=== PATIENT | male | born 1980 | race Caucasian/White ===

== ENCOUNTER 2016-11-07 18:04 | Emergency (ER) | payer BC, OTHER ==
[2016-11-07 19:24] VITALS: BP 125/75
--- NOTE | 2016-11-07 19:52 | UC ---
Throat Pain/Nasal Severino HPI - HPI Summary HPI Summary: pt c/o fever generalized malaise and sore throat X 3-4 days. - History of Current Complaint Chief Complaint: UCRespiratory Stated Complaint: SORE THROAT Time Seen by Provider: 11/07/16 19:34 Hx Obtained From: Patient Onset/Duration: Sudden Onset Severity: Moderate Cough: None Associated Signs & Symptoms: Positive: Dysphagia, Fever - Allergies/Home Medications Allergies/Adverse Reactions: Allergies Allergy/AdvReac Type Severity Reaction Status Date / Time Penicillins Allergy Unknown Verified 11/07/16 19:15 Reaction Details Home Medications: Home Medications [id number] [Nighttime Cold Medicine 15-6.25-500 mg/15Ml] 1 liq PO BEDTIME PRN 11/07/16 [History Confirmed 11/07/16] Ustekinumab (IV) [Stelara] 11/07/16 [History] PMH/Surg Hx/FS Hx/Imm Hx Previously Healthy: Yes - Surgical History Surgical History: Yes Surgery Procedure, Year, and Place: lithotrispy. herniated DISC INFECTIONS - Family History Known Family History: Positive: Other - positive [facility] for URI - Social History Lives: With Family Alcohol Use: Occasionally Substance Use Type: None Substance Use Comment - Amount & Last Used: tramadol Smoking Status (MU): Never Smoked Tobacco - Immunization History Most Recent Influenza Vaccination: NO Review of Systems Constitutional: Fever, Chills, Fatigue Skin: Negative Eyes: Negative ENT: Sore Throat Respiratory: Negative Cardiovascular: Negative Gastrointestinal: Negative Genitourinary: Negative Motor: Negative Neurovascular: Negative Musculoskeletal: Myalgia Neurological: Headache Psychological: Negative All Other Systems Reviewed And Are Negative: Yes Physical Exam Triage Information Reviewed: Yes Appearance: Ill-Appearing Vital Signs: Initial Vital Signs Temp 100 F 11/07/16 19:18 Pulse 108 11/07/16 19:18 BP 125/75 11/07/16 19:18 Pulse Ox 99 11/07/16 19:18 Vital Signs Reviewed: Yes Eye Exam: Normal ENT Exam: Other ENT: Positive: Tonsillar swelling, Tonsillar exudate Neck exam: Normal Respiratory Exam: Normal Cardiovascular Exam: Normal Musculoskeletal Exam: Normal Neurological Exam: Normal Psychological Exam: Normal Skin Exam: Normal Throat Pain/Nasal Course/Dx - Differential Dx/Diagnosis Differential Diagnosis/HQI/PQRI: Influenza, Mononucleosis, Pharyngitis, Tonsillitis Provider Diagnoses: Tonsillitis Discharge - Discharge Plan Condition: Stable Disposition: HOME Prescriptions: Azithromycin [Azithromycin 500 MG TAB] 500 mg PO DAILY #5 tab Patient Education Materials: Tonsillitis (ED) Referrals: José Samuel MD [Primary Care Provider] - Additional Instructions: Please follow up with your PCP as soon as possible or return to clinic as needed.
== END 2016-11-07 19:48 | disposition home or self-care (01) ==
LOC: UCCORT 18:04
DX: J03.90 Acute tonsillitis, unspecified (principal); Z88.0 Allergy status to penicillin
CPT/HCPCS: 99212; G0463

== ENCOUNTER 2019-02-18 12:01 | Emergency (ER) | payer BC ==
[2019-02-18 13:01] VITALS: BP 141/87
--- NOTE | 2019-02-18 13:15 | UC ---
Respiratory Complaint HPI - HPI Summary HPI Summary: Pt c/o sudden onset of cough, chest congestion X 4 days. PT denies fever, chills, body aches. States that he woke this morning and thought that his " lymph nodes in his neck were enlarged and tender" - History of Current Complaint Chief Complaint: UCRespiratory Stated Complaint: COUGH Time Seen by Provider: 02/18/19 12:59 Hx Obtained From: Patient Onset/Duration: Sudden Onset, Lasting Days, Still Present Timing: Intermittent Episodes Severity Initially: Mild Severity Currently: Mild Pain Intensity: 0 Character: Cough: Nonproductive Aggravating Factors: Nothing Alleviating Factors: Nothing Associated Signs And Symptoms: Positive: Negative - Risk Factors Pulmonary Embolism Risk Factors: Negative Cardiac Risk Factors: Negative Pseudomonas Risk Factors: Negative Tuberculosis Risk Factors: Negative - Allergies/Home Medications Allergies/Adverse Reactions: Allergies Allergy/AdvReac Type Severity Reaction Status Date / Time Penicillins Allergy Unknown Verified 02/18/19 12:57 Reaction Details Home Medications: Home Medications Ustekinumab [Stelara] 90 mg SQ Q90D 02/18/19 [History Confirmed 02/18/19] PMH/Surg Hx/FS Hx/Imm Hx Previously Healthy: Yes - Surgical History Surgical History: Yes Surgery Procedure, Year, and Place: lithotrispy. herniated DISC INFECTIONS - Family History Known Family History: Positive: Other - positive [facility] for URI - Social History Occupation: Employed Full-time Lives: With Family Alcohol Use: Occasionally Substance Use Type: None Substance Use Comment - Amount & Last Used: tramadol Smoking Status (MU): Never Smoked Tobacco Have You Smoked in the Last Year: No - Immunization History Most Recent Influenza Vaccination: NO Vaccination Up to Date: Yes Review of Systems All Other Systems Reviewed And Are Negative: Yes Constitutional: Positive: Negative Skin: Positive: Negative Eyes: Positive: Negative ENT: Positive: Negative Respiratory: Positive: Cough Cardiovascular: Positive: Negative Gastrointestinal: Positive: Negative Genitourinary: Positive: Negative Motor: Positive: Negative Neurovascular: Positive: Negative Musculoskeletal: Positive: Negative Neurological: Positive: Negative Psychological: Positive: Negative Is Patient Immunocompromised?: No Physical Exam Triage Information Reviewed: Yes Appearance: Well-Appearing Vital Signs: Initial Vital Signs Temp 98.5 F 02/18/19 12:55 Pulse 84 02/18/19 12:55 Resp 16 02/18/19 12:55 BP 141/87 02/18/19 12:55 Pulse Ox 99 02/18/19 12:55 Vital Signs Reviewed: Yes Eye Exam: Normal ENT Exam: Normal Dental Exam: Normal Neck exam: Normal Neck: Positive: Nontender, No Lymphadenopathy Respiratory Exam: Normal Respiratory: Positive: Lungs clear, Normal breath sounds, No respiratory distress Cardiovascular Exam: Normal Musculoskeletal Exam: Normal Neurological Exam: Normal Psychological Exam: Normal Skin Exam: Normal Respiratory Course/Dx - Differential Dx/Diagnosis Differential Diagnosis/HQI/PQRI: Bronchitis, Other - cough Provider Diagnosis: Viral URI with cough Discharge - Sign-Out/Discharge Documenting (check all that apply): Patient Departure All imaging exams completed and their final reports reviewed: No Studies - Discharge Plan Condition: Stable Disposition: HOME Prescriptions: Benzonatate CAP* [Tessalon 100 MG CAP*] 200 mg PO Q8H PRN #30 cap PRN Reason: Cough predniSONE TAB* [Deltasone 20 MG TAB*] 20 mg PO DAILY #5 tab Patient Education Materials: Viral Syndrome (ED), Acute Cough (ED) Referrals: No Primary Care Phys,NOPCP [Primary Care Provider] - [facility] [place] [facility] [place]] - If Needed - Billing Disposition and Condition Condition: STABLE Disposition: Home
== END 2019-02-18 13:23 | disposition home or self-care (01) ==
LOC: UCCORT 12:01
DX: J06.9 Acute upper respiratory infection, unspecified (principal); R05 Cough; Z88.0 Allergy status to penicillin
CPT/HCPCS: 99212; G0463

== ENCOUNTER 2019-03-31 12:50 | Emergency (ER) | payer BC ==
--- OUTSIDE RECORDS SUMMARY | 2019-03-31 13:22 | XMS REPORT | Continuity of Care Document ---
:1980 External Reference #:[id number] Author Name Estelle Yousif MD Address [address] [place] [address] Care Team Providers Name Role Phone José Samuel MD Care Team Information Manager Clinical Research Unavailable José Samuel MD Primary Care Physician Unavailable Payers Date Identification Numbers Payment Provider Subscriber Onset: 2019 Policy Number: [id number] [facility] Insurance Fund Mj Perdomo Group Number: F: [phone] [address] [address] PayID: [id number] [place] [address] Family History Date Family Member(s) Observation Comments Father Psoriasis Mother No Current Problems Social History Type Date Description Comments Sex Unknown Marital Status 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 Tobacco Use Start: Unknown Never Smoked Cigarettes ETOH Use Currently consumes alcohol socially Tobacco Use Start: Unknown Patient denies history of smoking Recreational Drug Use Denies Drug Use Smoking Status Reviewed: 03/16/19 Patient denies history of smoking Allergies, Adverse Reactions, Alerts Active Allergies Reaction Severity Comments Date Penicillin childhood/doesn't remember 03/16/2019 Medications Active Medications SIG Qnty Indications Ordering Provider Date Stelara every 3 months Unknown 90mg/ml Soln Prefill Syringe Vital Signs Date Vital Result Comment 03/16/2019 9:01am BP Systolic Sitting Left Arm 139 mmHg BP Diastolic Sitting Left Arm 99 mmHg Body Temperature 96.3 F Heart Rate 74 /min Height 74 inches 6'2" Weight 267.00 lb BMI (Body Mass Index) 34.3 kg/m2 BSA (Body Surface Area) 2.46 m2 [place] body weight in kilograms 86 kg O2 % BldC Oximetry 97 % Plan of Treatment Future Appointment(s):04/15/2019 10:00 am - [facility]16/2019 - Estelle Yousif, MDM77.02 Medial epicondylitis, left [id number] Unspecified injury of muscle(s) and tendon(s) of the rotator cuff of left shoulder, subsequent encounterNew Therapy:Physical/Occupational Therapy
--- OUTSIDE RECORDS SUMMARY | 2019-03-31 13:22 | XMS REPORT | Continuity of Care Document ---
:1980 External Reference #:[id number] Author Name Tamera Alvarez Care Team Providers Name Role Phone José Samuel MD Care Team Information Health And Fitness Professor Unavailable José Samuel MD Primary Care Physician Unavailable Payers Date Identification Numbers Payment Provider Subscriber Policy Number: [id number] [employer] Katia Perdomo PayID: [id number] [address] [address] [place] [address] Family History Date Family Member(s) Observation Comments Father 58 Father Unremarkable Mother 57 Mother Unremarkable Social History Type Date Description Comments Sex Unknown Tobacco Use Start: Unknown Never Smoked Cigarettes ETOH Use Rare Use Of Alcohol Recreational Drug Use Has Used In Past Allergies, Adverse Reactions, Alerts Active Allergies Reaction Severity Comments Date Penicillin pt doesnt know Moderate 03/25/2019 Medications Active Medications SIG Qnty Indications Ordering Provider Date Stelara Unknown 45mg/0.5ML Solution Vital Signs Date Vital Result Comment 03/25/2019 11:15am Weight 266.00 lb Height 73 inches 6'1" BMI (Body Mass Index) 35.1 kg/m2 BP Systolic 146 mmHg BP Diastolic 89 mmHg Heart Rate 76 /min O2 % BldC Oximetry 100 % Body Temperature 98.2 F Pain Level 0
[2019-03-31 13:26] VITALS: BP 153/85
--- NOTE | 2019-03-31 13:53 | UC ---
Ear Complaint HPI - HPI Summary HPI Summary: pt c/o sudden onset of left ear pain and slight discharge. pt states that his left ear feels clogged an he has small amount of clear drainage. Pt states that he swims daily. - History of Current Complaint Chief Complaint: UCEar Stated Complaint: LEFT EAR PAIN Time Seen by Provider: 03/31/19 13:34 Hx Obtained From: Patient Onset/Duration: Sudden Onset, Lasting Days, Still Present Severity Initially: Severe Severity Currently: Severe Pain Intensity: 8 Aggravating Factors: Nothing Associated Signs/Symptoms: Positive: Discharge, Hearing Loss, Swelling @ - outside left ear - Allergies/Home Medications Allergies/Adverse Reactions: Allergies Allergy/AdvReac Type Severity Reaction Status Date / Time Penicillins Allergy Unknown Verified 03/31/19 13:21 Reaction Details PMH/Surg Hx/FS Hx/Imm Hx Previously Healthy: Yes - Surgical History Surgical History: Yes Surgery Procedure, Year, and Place: lithotrispy. herniated DISC INFECTIONS - Family History Known Family History: Positive: Other - positive [facility] for URI - Social History Occupation: Employed Full-time Lives: With Family Alcohol Use: Weekly Substance Use Type: None Substance Use Comment - Amount & Last Used: tramadol Smoking Status (MU): Never Smoked Tobacco Have You Smoked in the Last Year: No - Immunization History Most Recent Influenza Vaccination: NO Vaccination Up to Date: Yes Review of Systems All Other Systems Reviewed And Are Negative: Yes Constitutional: Positive: Negative Skin: Positive: Negative Eyes: Positive: Negative ENT: Positive: Ear Ache - left Respiratory: Positive: Negative Cardiovascular: Positive: Negative Gastrointestinal: Positive: Negative Genitourinary: Positive: Negative Motor: Positive: Negative Neurovascular: Positive: Negative Musculoskeletal: Positive: Negative Neurological: Positive: Negative Psychological: Positive: Negative Is Patient Immunocompromised?: No Physical Exam Triage Information Reviewed: Yes Appearance: Well-Appearing Vital Signs: Initial Vital Signs Temp 98.3 F 03/31/19 13:21 Pulse 103 03/31/19 13:21 Resp 16 03/31/19 13:21 BP 153/85 03/31/19 13:21 Pulse Ox 97 03/31/19 13:21 Vital Signs Reviewed: Yes Eye Exam: Normal ENT: Positive: Other - cerumen impaction left ear, left tragus tenderness and swelling Dental Exam: Normal Neck exam: Normal Respiratory Exam: Normal Cardiovascular Exam: Normal Musculoskeletal Exam: Normal Neurological Exam: Normal Psychological Exam: Normal Skin Exam: Normal Ear Complaint Course/Dx - Differential Dx/Diagnosis Differential Diagnosis/HQI/PQRI: Cerumen Impaction, Otitis Externa - left Provider Diagnosis: Impacted cerumen of left ear, Otitis externa, left Discharge - Sign-Out/Discharge Documenting (check all that apply): Patient Departure All imaging exams completed and their final reports reviewed: No Studies - Discharge Plan Condition: Stable Disposition: HOME Prescriptions: Neomyc/Polym/HC 1% OTIC SUSP* [Cortisporin Otic Susp 1%*] 4 drop LEFT EAR Q8H 7 Days #1 btl Patient Education Materials: Otitis Externa (ED), Cerumen Impaction (ED) Referrals: José Samuel MD [Primary Care Provider] - If Needed - Billing Disposition and Condition Condition: STABLE Disposition: Home
== END 2019-03-31 14:00 | disposition home or self-care (01) ==
LOC: UCCORT 12:50
DX: H61.22 Impacted cerumen, left ear (principal); H60.92 Unspecified otitis externa, left ear; Z88.0 Allergy status to penicillin
CPT/HCPCS: 99213; G0463